=== PATIENT | female | born 1975 | race Caucasian/White ===

== ENCOUNTER → 2020-05-05 | Outpatient (CLI) | payer OTHER ==
[~2020-05-05] MED LIST: ALENDRONATE SOD70 MG PO; AMLODIPINE BESYL5 MG PO; BUTALB-ACETAMI1 EAC1 PO; COZAAR 50MG TAB50 MG PO; DULOXETINE HCL60 MG PO; ELAVIL 25 MG TA25 MG PO; FERROUS SU220 MG/5 M PO; LEUCOVORIN CALCI5 MG PO; METHOTREXA25 MG/1 M6 SC; NORFLEX 100 MG100 MG PO; OMEPRAZOLE20 MG PO; PREDNISONE10 MG PO; RIZATRIPTAN10 M1 PO; SERTRALINE HCL25 MG PO; ZOFRAN 4 MG TAB4 MG PO
== END ==
LOC: CT 13:36
DX: R10.10 Upper abdominal pain, unspecified (principal)
CPT/HCPCS: 36415; Q9967